=== PATIENT | female | born 1975 | race Caucasian/White ===

== ENCOUNTER → 2016-12-18 | Outpatient (CLI) | payer BC ==
--- NOTE | 2016-12-18 12:43 | Diagnostic Imaging Report ---
EXAMINATION: Bilateral screening mammogram 2D views with tomosynthesis. The current study was also evaluated with a Computer Aided Detection (CAD) system. INDICATION: Screening. PERSONAL HISTORY: No current complaints stated on the questionnaire. COMPARISON: 12/03/2015. FINDINGS: The breasts are composed of scattered fibroglandular densities. There is no mass, architectural distortion, or suspicious cluster of calcifications. Allowing for technique and positional differences, no suspicious change is seen. IMPRESSION: No significant change. ACR BI-RADS Category 2: Benign findings. Result letter will be mailed to the patient. Note: At least 10% of breast cancer is not imaged by mammography. Dictated by: Dictated on workstation # [id number]
== END ==
LOC: RAD 10:05
PROVIDERS: ATTEND Nurse Practitioner
DX: Z12.31 Encounter for screening mammogram for malignant neoplasm of breast (principal)
CPT/HCPCS: 77067

== ENCOUNTER 2017-12-12 05:32 | Outpatient (CLI) | payer BC ==
[~2017-12-12] VITALS: Ht 177.8 cm; Wt 117.0 kg
== END 2017-12-12 11:10 ==
LOC: PREOP 05:32
PROVIDERS: ATTEND Obstetrics & Gynecology
DX: Z01.818 Encounter for other preprocedural examination (principal); N75.0 Cyst of Bartholin's gland

== ENCOUNTER 2017-12-14 10:48 | Day surgery (SDC) | payer BC ==
[~2017-12-14] VITALS: Ht 177.8 cm; Wt 117.0 kg
[2017-12-14] MEDS ORDERED: LACTATED RINGERS 1,000 ML IV PRN (10:54)
[2017-12-14 11:00] VITALS: BP 136/89
[2017-12-14] MEDS ORDERED: metroNIDAZOLE 500MG/100ML IVPB 100 ML IV ONE (11:00)
[2017-12-14] MEDS ORDERED: ceFAZolin INJECTION 1,000 MG in NS (IVPB) 50 ML IV ONE (11:00)
[2017-12-14] MEDS ORDERED: DEXAMETHASONE 10 MG/ML (DECADRON) 1 ML VIAL ONE (11:54)
[2017-12-14] MEDS ORDERED: proPOfol 200 MG/20 ML (DIPRIVAN) VIAL IV ONE (11:54)
[2017-12-14] MEDS ORDERED: LIDOCAINE PF 2% 5 ML (XYLOCAINE) VIAL ONE (11:54)
[2017-12-14] MEDS ORDERED: ONDANSETRON 4 MG/2 ML (SDV) Z0FRAN ONE (11:54)
[2017-12-14] MEDS ORDERED: ROCURONIUM 10 MG/ML 5 ML SYRINGE IV ONE (11:55)
[2017-12-14] MEDS ORDERED: fentaNYL INJECTION 100 MCG/2 ML AMP ONE ×2 (11:55→13:13)
[2017-12-14] MEDS ORDERED: SEVOFLURANE (ULTANE) 15 ML INHAL SOLN ONE (11:55)
[2017-12-14] MEDS ORDERED: MIDAZOLAM 2 MG/2 ML (VERSED) VIAL ONE (11:55)
[2017-12-14] MEDS ORDERED: BUP/EPI 0.5% 1:200,000 (SENSORCAINE) 30 ML VIAL ONE (12:04)
--- NOTE | 2017-12-14 12:53 | Progress Note-Pre Operative ---
Pre-Operative Progress Note H&P Reviewed The H&P was reviewed, patient examined and no changes noted. Date Seen by Provider: Dec 14, 2017 Time Seen by Provider: 12:35 Date H&P Reviewed: Dec 14, 2017 Time H&P Reviewed: 12:30 Pre-Operative Diagnosis: left bartholin's cyst ROMAIN NAYAK DO Dec 14, 2017 12:53 pm
--- NOTE | 2017-12-14 13:03 | Discharge Inst-Women's Service ---
Discharge Inst-Women's Serv Depart Medication/Instructions New, Converted or Re-Newed RX: RX on Chart Instructions What is a Bartholins cyst? The Bartholin's glands are a pair of pea-sized glands located just behind and either side of the lips that surround the entrance to the vagina. The glands are not usually noticeable because they are rarely larger than 1cm (0.4 inches) across. The Bartholin's glands secrete a fluid that acts as a lubricant during sex. The fluid travels down tiny tubes, called ducts, into the vagina. If the ducts become blocked, they can fill with fluid and expand to form a cyst. The cyst may burst spontaneously and may also reoccur. If you are in pain or have swelling, you can have a small operation under general anaesthetic to drain the abscess or remove the cyst to relieve your symptoms. What does the operation involve? Your cyst/abscess will be treated using a surgical procedure known as marsupialization. This is usually performed under a general anaesthetic, meaning that you will be asleep for the entire procedure. In marsupialization, the cyst is first cut open and the fluid drained out. The edges of the skin are then stitched in a way that creates a small pouch, which prevents further fluid build-up. The procedure usually takes around 10 15 minutes. What are the risks? Although complications after marsupialization are rare, they can include: infection a recurrence of the abscess bleeding pain (you may be given painkillers to ease any pain in the first 24 hours after the procedure). You will normally be advised to take things easy for a few days and should avoid having sex until the wound has completely healed (about two weeks). This also helps to reduce the risk of infection after surgery. What should I expect after the operation? If you have any post-operative nausea or vomiting, the nurses can also give you anti-sickness medicine. Once your pain is at a tolerable level and we have confirmed that you are well enough , you can go home. You may have a small pack inserted into the space left by the drainage/removal of your abscess/cyst. This pack will be removed after a few hours or you may remove it yourself at home after 24 hours (after soaking in the bath and taking painkillers). What should I expect at home? Bleeding: You should expect some vaginal bleeding for four to five days. This is normal. However, if the bleeding is far heavier than a normal period and/or you are going through a maxi pad within an hour, you should contact Dr. Linn or the covering physician. Pain: It is normal to experience some mild pain for a couple of days after the operation. We advise that you get plenty of rest and use the painkillers that you would normally use at home. Some women find that a hot water bottle also provides relief and comfort. If the pain becomes severe in the lower abdomen and it is not relieved by painkillers, please contact Dr. Linn. Risk of infection: To help prevent infection you may be prescribed antibiotics. The discharge nurse will discuss these with you, and you should take them as prescribed, completing the whole course. If you develop a fever or flu-like symptoms, an unpleasant smelling discharge from your vagina, or abdominal pain, please contact your Dr. Linn as you may have an infection. If the symptoms are severe, go straight to the emergency department . How can I take care of myself? You should have a bath or shower twice a day, paying special attention to your vaginal area. Wipe yourself from front to back to avoid infection and do not use talcum powder on the area. You should wear cotton, breathable underwear. We recommend abstaining from sexual intercourse or using tampons for two weeks to allow the area to heal and to reduce the chance of infection. You will have absorbable stitches in place, which will fall out by themselves one to two weeks after the operation. Please keep the area as dry as possible for the first 24 48 hours and then as clean and dry as you can until the stitches have completely dissolved. When will I feel back to my normal self? Following a general anesthetic it is normal to feel tired, dizzy or weak for up to 48 hours. For 24 hours following your anaesthetic, we recommend that you do not: drive a vehicle or ride a bicycle operate heavy machinery or equipment sign any legal documents or make any important decisions drink alcoholic drinks engage in sport, strenuous exercise or heavy lifting. You are likely to feel tired over the next day or so and it is important that you get plenty of rest to help you recover. It is best for you to rest for the remainder of the day on the day of your operation you may start getting back to your normal routine the following day if you feel able to. We recommend that you allow yourself at least two days off from work to recover fully. Final Diagnosis bartholin's gland cyst Consults/Follow Up Additional Follow Up: Yes ([address] Linn) Activity Activity: Activity as Tolerated Driving Instructions: No Driving for 24 Hours NO SMOKING: NO SMOKING Nothing Inside Vagina: No Douching, No [place], No Tampons Diet Discharge Diet: No Restrictions Symptoms to Report to : Bleeding Excessive, Pain Increased, Fever Over 101 Degrees F, Vaginal Bleeding Increase, Vaginal Discharge Foul For Any Problems or Questions: Contact Your Physician Skin/Wound Care Infection Signs and Symptoms: Increased Redness, Foul Odor of Wound, Increased Drainage, Skin Itchy or Has a Rash, Increased Swelling, Temperature Above 101 F Operative Area Clean and Dry: Keep Incision Clean/Dry Stitches/Heather/Dermabond: Care of [place] Bathing Instructions: ROMAIN Tristan DO Dec 14, 2017 1:03 pm
[2017-12-14] MEDS ORDERED: KETOROLAC 30 MG/ML VIAL IVP ONE (13:15)
--- NOTE | 2017-12-14 13:44 | Operative Report ---
Operative Report Date of Procedure/Surgery Dec 14, 2017 Surgeon (s) ROMAIN NAYAK DO Ingredient Handler (s): NA Post-Operative Diagnosis Bartholin's gland cyst Procedure Performed Marsupialization of bartholin's Cyst Description of Procedure Anesthesia Type: General Estimated blood loss (mL): minimal Specimen(s) collected/removed none Packin inch guaze Description of the Procedure With informed consent the patient was taken to the operating room where general anesthesia was found to be adequate. she was prepped and draped in the usual sterile fashion in the dorsolithotomy position. The bladder was drained with straight cath of clear yellow urine. There was a 4 cm cyst noted in the left labia majora consistent with a Bartholin 's Cyst. There was no evidence of infection. I injected over the area with 0.5% Marcaine. A vertical oval incision was made over the center of the cyst at the vestibule and outside the hymenal ring. I then incised the cyst and there was slightly cloudy fluid but no evidence of infection. The cyst cavity was then irrigated with saline solution and a loculation was broken up with my finger. The cyst wall is then everted and sutured onto the edge of the vestibular mucosa with interrupted 2-0 absorbable suture. a 1 inch packing gauze was placed. The patient was awakened and taken to the recovery room in stable condition. Sponge, needle and instrument counts correct times two. Findings of the Procedure 3x4 cm bartholin's gland cyst. No evidence of infection Allergies and Home Medications Allergies Coded Allergies: No Known Drug Allergies (Unverified , 12/12/17) Home Medications No Active Prescriptions or Reported Meds Patient Home Medication List Home Medication List Reviewed: Yes ROMAIN NAYAK DO Dec 14, 2017 13:44
[2017-12-14] MEDS ORDERED: HYDR-757 PO (13:53)
[2017-12-14] MEDS ORDERED: IBUP-1773 PO (13:53)
[2017-12-14] MEDS ORDERED: morphine INJ 10 MG/ML 1ML (SYR OR VIAL) IVP PRN (14:00)
[2017-12-14] MEDS ORDERED: HYDROmorphone 1 MG/ML (DILAUDID) 1 ML SYRINGE IV PRN (14:00)
[2017-12-14] MEDS ORDERED: ONDANSETRON 4 MG/2 ML (SDV) Z0FRAN IVP PRN (14:00)
[2017-12-14] MEDS ORDERED: morphine INJ 10 MG/ML 1ML (SYR OR VIAL) ONE (14:17)
[2017-12-14 14:45] VITALS: BP 125/86
[2017-12-14 15:15] VITALS: BP 120/75
[2017-12-14 15:45] VITALS: BP 122/71
[2017-12-14 16:00] VITALS: BP 122/71
== END 2017-12-14 16:00 | disposition home or self-care (01) ==
LOC: SDC 10:48
PROVIDERS: ATTEND Obstetrics & Gynecology
DX: N75.0 Cyst of Bartholin's gland (principal)
CPT/HCPCS: 84703; 87081; 94664

== ENCOUNTER → 2017-12-19 | Outpatient (CLI) | payer BC ==
[~2017-12-19] MED LIST: HYDR-757 PO; IBUP-1773 PO
--- NOTE | 2017-12-20 09:03 | Diagnostic Imaging Report ---
INDICATION: Routine screening. Comparison is made prior exam from 12/18/2016 and 12/03/2015. 2-D and 3-D bilateral screening mammography was performed with a Computer Aided Detection (CAD) system. FINDINGS: Scattered fibroglandular densities are identified bilaterally. The parenchymal pattern is stable. No mass or malignant appearing microcalcifications are seen. The axillae are unremarkable. IMPRESSION: No mammographic features suspicious for malignancy are identified. ACR BI-RADS Category 1: Negative. Result letter will be mailed to the patient. Note: At least 10% of breast cancer is not imaged by mammography. Dictated by: Dictated on workstation # [id number]
== END ==
LOC: RAD 14:04
PROVIDERS: ATTEND Nurse Practitioner
DX: Z12.31 Encounter for screening mammogram for malignant neoplasm of breast (principal)
CPT/HCPCS: 77067

== ENCOUNTER → 2018-06-24 | Outpatient (CLI) | payer BC ==
[~2018-06-24] MED LIST changes: +HYDR-4226 PO; -HYDR-757 PO
--- NOTE | 2018-06-24 17:40 | Diagnostic Imaging Report ---
INDICATION: Graves' disease, history of thyroid surgery. FINDINGS: There is an inhomogeneous lesion in the right thyroid bed, measuring about 4.6 x 3.2 x 6.1 cm. This area has solid and cystic components. The left thyroid lobe measured 5.9 x 2.7 x 2.0 cm and contains a septated cyst measuring about 1.6 x 1.0 x 1.2 cm and a simple cyst measuring 1.0 x 0.6 x 0.5 cm. The thyroid isthmus measured 6 mm. IMPRESSION: 1. Patient has history of thyroid surgery. Large inhomogeneous lesion in right thyroid bed appears to be increased in size compared to 12/03/2012. Small complex cystic lesion and small simple cystic lesion in the left thyroid lobe are noted, the complex lesion appears to be mildly increased in size compared to the prior study of 12/03/2012. Consider followup as clinically warranted. Dictated by: Dictated on workstation # [id number]
== END ==
LOC: RAD 15:38
PROVIDERS: ATTEND Nurse Practitioner Family
DX: E05.00 Thyrotoxicosis with diffuse goiter without thyrotoxic crisis or storm (principal); Z90.89 Acquired absence of other organs
CPT/HCPCS: 76536

== ENCOUNTER → 2018-09-19 | Outpatient (CLI) | payer BC | LOC: LAB 08:36 | PROVIDERS: ATTEND Internal Medicine Endocrinology, Diabetes & Metabolism | DX: E04.9 Nontoxic goiter, unspecified (principal) | CPT/HCPCS: 36415; 82947; 83525 ==

== ENCOUNTER → 2019-03-14 | Outpatient (CLI) | payer BC ==
--- NOTE | 2019-03-14 17:50 | Diagnostic Imaging Report ---
INDICATION: Routine screening. Comparison is made with prior mammograms from 12/19/2017 and 12/18/2016. 2-D and 3-D bilateral screening mammography was performed. The current study was also evaluated with a Computer Aided Detection (CAD) system. 3-D tomosynthesis was also performed and reviewed. FINDINGS: Scattered fibroglandular densities are identified bilaterally. No mass or malignant-appearing microcalcifications are identified. Axillae are unremarkable. IMPRESSION: No mammographic features suspicious for malignancy are identified. ACR BI-RADS Category 1: Negative. Result letter will be mailed to the patient. Note: At least 10% of breast cancer is not imaged by mammography. Dictated by: Dictated on workstation # [id number]
== END ==
LOC: RAD 15:30
PROVIDERS: ATTEND Obstetrics & Gynecology
DX: Z12.31 Encounter for screening mammogram for malignant neoplasm of breast (principal)
CPT/HCPCS: 77067

== ENCOUNTER → 2020-04-07 | Outpatient (CLI) | payer BC ==
--- NOTE | 2020-04-07 11:34 | Diagnostic Imaging Report ---
INDICATION: Routine screening. COMPARISON: 03/14/2019 and 12/19/2017. TECHNIQUE: 2D and 3D bilateral screening mammography was performed with CAD. FINDINGS: Scattered fibroglandular densities are identified bilaterally. The parenchymal pattern is stable. No mass or malignant appearing microcalcifications are seen. The axillae are unremarkable. IMPRESSION: No mammographic features suspicious for malignancy are identified. ACR BI-RADS Category 1: Negative. Result letter will be mailed to the patient. Note: At least 10% of breast cancer is not imaged by mammography. Dictated by: Dictated on workstation # [id number]
== END ==
LOC: RAD 09:17
PROVIDERS: ATTEND Obstetrics & Gynecology
DX: Z12.31 Encounter for screening mammogram for malignant neoplasm of breast (principal)
CPT/HCPCS: 77063; 77067